=== PATIENT | female | born 1975 | race Two or more races ===

== ENCOUNTER 2024-06-06 13:12 | Emergency (ER) | payer MEDICAID, OTHER ==
[~2024-06-06] VITALS: Ht 157.5 cm; Wt 63.5 kg
[2024-06-06] MEDS ORDERED: MAGNESIUM SULFATE/D5W 200 ML ONE (15:00)
[2024-06-06] MEDS: ALBUTEROL SULFATE 2.5 MG/3 ML NEBU NEB ONE (15:00)
[2024-06-06] MEDS ORDERED: predniSONE 10 MG TABLET ONE (15:00)
[2024-06-06] MEDS: IPRATROPIUM BROMIDE 0.5 MG/2.5 ML NEBU NEB ONE (15:00)
[2024-06-06] MEDS ORDERED: ALBUTEROL SULFATE 2.5 MG/3 ML NEBU ONE (15:03)
[2024-06-06] MEDS ORDERED: IPRATROPIUM BROMIDE 0.5 MG/2.5 ML NEBU ONE (15:03)
[2024-06-06 15:05] VITALS: O2SAT 97
[2024-06-06 15:07] LABS: BASOPHILS # (AUTO) 0.1 K/UL (0.0-0.2); BASOPHILS % (AUTO) 1.1 % (0.0-2.0); EOSINOPHILS # (AUTO) 1.5 K/uL (0.0-0.7); EOSINOPHILS % (AUTO) 19.9 % (0.0-7.0); HEMATOCRIT 42.3 % (31.2-41.9); LYMPHOCYTES # (AUTO) 1.2 K/uL (0.8-4.8); LYMPHOCYTES % (AUTO) 15.9 % (20.5-51.5); MEAN CORPUSCULAR HEMOGLOBIN 31.1 uug (24.7-32.8); MEAN CORPUSCULAR HGB CONC 33 g/dL (32.3-35.6); MEAN CORPUSCULAR VOLUME 93.8 fL (75.5-95.3); MONOCYTES # (AUTO) 0.5 K/uL (0.1-1.30); MONOCYTES % (AUTO) 6.3 % (0.0-11.0); NEUTROPHILS # (AUTO) 4.2 K/uL (1.8-8.9); NEUTROPHILS % (AUTO) 56.8 % (38.5-71.5); PLATELET COUNT (AUTO) 172 K/uL (179-408); RED BLOOD CELL COUNT(AUTO) 4.51 MIL/uL (3.63-4.92); WHITE BLOOD COUNT (AUTO) 7.4 K/uL (3.8-11.8)
[2024-06-06 15:12] LABS: DIFFERENTIAL COMMENT 1
[2024-06-06 15:16] LABS: CALCIUM 8.7 mg/dL (8.5-10.1); CARBON DIOXIDE 25 mmol/L (21-32); CHLORIDE 106 mmol/L (98-107); CREATININE 0.5 mg/dL (0.6-1.3); GLUCOSE 95 mg/dL (74-106); POTASSIUM 3.6 mmol/L (3.5-5.1); SODIUM SERUM 141 mmol/L (136-145); UREA NITROGEN, BLOOD 6 mg/dL (7-18)
[2024-06-06] MEDS: predniSONE 10 MG TABLET PO ONE (15:30)
[2024-06-06] MEDS: MAGNESIUM SULFATE 2 GM in IV DEXTROSE 5% 100 ML IV ONE (15:30)
[2024-06-06] MEDS ORDERED: albuterol solution NEB (17:26)
[2024-06-06] MEDS ORDERED: ALBU6.7H9 INH (17:26)
[2024-06-06] MEDS ORDERED: albuterol nebulizer (17:26)
[2024-06-06] MEDS ORDERED: PRED20TA PO (17:26)
[2024-06-06] MEDS ORDERED: DOXY100T2 PO (17:26)
[2024-06-06 18:13] VITALS: BP 128/78; TEMP 98; O2SAT 100
== END 2024-06-06 18:13 | disposition home or self-care (01) ==
LOC: ER 13:12
DX: R94.31 Abnormal electrocardiogram [ECG] [EKG] (principal); J45.902 Unspecified asthma with status asthmaticus
CPT/HCPCS: 99291; 96365; 96366; 80048; 85025; 36415; 71045; 94644; 93005; J7512; J3475 ×2; A4606; A4663; J3590